=== PATIENT | female | born 1980 | race Caucasian/White ===

== ENCOUNTER → 2019-01-18 | Outpatient (RCR) | payer BC ==
[~2019-01-18] MED LIST: MECLIZINE HCL25 MG PO; MOTRIN800 M1 PO
== END ==
LOC: PT 01-14 09:55
PROVIDERS: ATTEND Neurological Surgery
DX: M50.020 Cervical disc disorder with myelopathy, mid-cervical region, unspecified level (principal)

== ENCOUNTER 2019-02-17 10:00 | Outpatient (RCR) | payer BC | END 2019-02-18 | LOC: PT 10:00 | PROVIDERS: ATTEND Neurological Surgery | DX: M50.020 Cervical disc disorder with myelopathy, mid-cervical region, unspecified level (principal) ==

== ENCOUNTER 2019-03-18 08:58 | Outpatient (RCR) | payer BC | END 2019-03-20 | LOC: PT 08:58 | PROVIDERS: ATTEND Neurological Surgery | DX: M54.5 Low back pain (principal); M50.020 Cervical disc disorder with myelopathy, mid-cervical region, unspecified level; M62.81 Muscle weakness (generalized); R26.9 Unspecified abnormalities of gait and mobility ==

== ENCOUNTER → 2019-03-28 | Outpatient (CLI) | payer BC ==
--- NOTE | 2019-03-29 17:37 | Diagnostic Imaging Report ---
EXAM: US ABDOMEN COMPLETE DATE: 03/28/2019 12:10 PM INDICATION: Dysmenorrhea COMPARISON: None TECHNIQUE: Transverse and longitudinal harkins scale and color doppler sonographic images of the upper abdomen were obtained. FINDINGS: There is no evidence of fluid or masses seen in the area of clinical concern in the right lower quadrant. LIVER 14.1 cm in the right midclavicular line. Increased echogenicity of the liver with normal contour, no masses. SPLEEN 12.1 cm in maximum diameter. Normal echogenicity, no masses. GALLBLADDER No gallbladder wall thickening (0.2 cm), distension, stone, or pericholecystic fluid. NEgative reported sonographic San's sign. BILE DUCTS No intra nor extra-hepatic biliary dilation. Common bile duct measures 0.4cm PANCREAS: Visualized portions are normal. RIGHT KIDNEY: 11.0 cm Echogenicity: Normal Collecting System: No hydronephrosis Stones: None Cyst/Mass: None LEFT KIDNEY: 12.2 cm Echogenicity: Normal Collecting System: No hydronephrosis Stones: None Cyst/Mass: None VESSELS: Aorta: Visualized portions are within normal size limits Inferior Vena Cava: Visualized portions are normal Main Portal Vein: 1.0 cm, normal size with hepatopetal flow. FREE FLUID: None IMPRESSION: Hepatic steatosis. No hydronephrosis or renal calculi. Signed by: Tadeo Rey MD on 03/29/2019 5:34 PM
--- NOTE | 2019-03-29 17:41 | Diagnostic Imaging Report ---
Exam: Pelvic ultrasound. History: Dysmenorrhea Comparison: None. Findings: Transabdominal and endovaginal sonographic evaluation of the pelvis. The uterus is anteverted in position, measuring 8.2 x 4.9 x 6.3cm. Uterus is heterogeneous in echotexture with no focal mass identified. Endometrial stripe thickness is 9 millimeters. The right ovary measures 3.3 x 2.2 x 2.5 cm. The left ovary measures 1.8 x 2.1 x 1.8 cm. No free fluid in the pelvis. There is a nabothian cyst in the cervix. Impression: Heterogeneous appearing uterus with no focal mass. Normal ovaries. 9 mm endometrial thickness. Signed by: Tadeo Rey MD on 03/29/2019 5:38 PM
== END ==
LOC: US 12:03
PROVIDERS: ATTEND Family Medicine
DX: N94.6 Dysmenorrhea, unspecified (principal)
CPT/HCPCS: 76700; 76830; 76856